=== PATIENT | male | born 1965 | race African-American/Black ===

== ENCOUNTER 2021-08-18 13:27 | Inpatient (IN) | payer OTHER ==
[~2021-08-18] VITALS: Ht 177.8 cm; Wt 90.9 kg
[2021-08-18 14:48] LABS: BASOPHILS % 0.4 % (0.0-2.0); EOSINOPHILS % 3.8 % (0.0-5.0); HEMATOCRIT. 38.7 % (42.0-52.0); HEMOGLOBIN. 13.7 g/dL (14.0-18.0); MEAN CORPUSCULAR HEMOGLOBIN 31.3 pg (28.0-32.0); MEAN CORPUSCULAR VOLUME 88.6 fL (80.0-94.0); MEAN PLATELET VOLUME 9.1 fl (7.4-10.4); NEUTROPHILS % 63.8 % (40.0-76.0); PLATELET 169 x1000/uL (130-400); RED BLOOD CELL COUNT 4.37 mill/uL (4.7-6.1); RED CELL DISTRIBUTION WIDTH 12.6 % (11.6-14.6)
[2021-08-18 14:50] LABS: INR 1.1; PROTHROMBIN TIME 11.8 sec (9.6-11.0)
[2021-08-18] MEDS ORDERED: IOHEXOL-350 100 ML BOTTLE ONE (15:02)
[2021-08-18 15:25] LABS: CLARITY URINE CLEAR (CLEAR); COLOR URINE YELLOW (YELLOW); KETONES URINE NEGATIVE (NEGATIVE); LEUKOCYTE ESTERASE URINE NEGATIVE (NEGATIVE); NITRITE URINE NEGATIVE (NEGATIVE); OCCULT BLOOD URINE TRACE (NEGATIVE); PROTEIN URINE NEGATIVE (NEGATIVE); SPECIFIC GRAVITY URINE 1.041 (1.005-1.030); UROBILINOGEN URINE 0.2 E.U./dL (0.2-1.0)
[2021-08-18 15:38] LABS: CHLORIDE 105 mEq/L (98-107)
[2021-08-18 15:43] LABS: ETHANOL BLOOD < 10 mg/dL
[2021-08-18 15:47] LABS: CREATINE KINASE 124 IU/L (39-308)
[2021-08-19 00:27] VITALS: BP 138/70
[2021-08-19] MEDS ORDERED: ZOLPIDEM TARTRATE 5MG TABLET PO PRN (01:45)
[2021-08-19 04:00] VITALS: BP 103/52
[2021-08-19 07:44] LABS: CHLORIDE 105 mEq/L (98-107)
[2021-08-19 07:46] LABS: BASOPHILS % 0.3 % (0.0-2.0); EOSINOPHILS % 6.6 % (0.0-5.0); HEMATOCRIT. 39.9 % (42.0-52.0); HEMOGLOBIN. 13.9 g/dL (14.0-18.0); LYMPHOCYTES % 31.8 % (20.0-50.0); MEAN CORPUSCULAR HEMOGLOBIN 30.6 pg (28.0-32.0); MEAN CORPUSCULAR VOLUME 87.8 fL (80.0-94.0); MEAN PLATELET VOLUME 8.8 fl (7.4-10.4); MONOCYTES % 11.1 % (2.0-8.0); NEUTROPHILS % 50.2 % (40.0-76.0); PLATELET 184 x1000/uL (130-400); RED BLOOD CELL COUNT 4.55 mill/uL (4.7-6.1); RED CELL DISTRIBUTION WIDTH 12.9 % (11.6-14.6)
[2021-08-19 08:00] VITALS: BP 112/58
[2021-08-19 08:04] LABS: LDL CHOLESTEROL 128 mg/dL (5-100)
[2021-08-19 08:05] LABS: HDL CHOLESTEROL 48 mg/dL (40-59)
[2021-08-19] MEDS ORDERED: ENOXAPARIN 40MG/0.4ML SYR SUBCUT SCH (09:00)
[2021-08-19] MEDS ORDERED: ASPIRIN 81MG TABLET PO SCH (09:00)
[2021-08-19 12:00] VITALS: BP 122/60
[2021-08-19 16:00] VITALS: BP 120/72
[2021-08-19 16:26] VITALS: BP 113/73
== END 2021-08-19 16:45 | disposition short-term general hospital (02) | DRG 93 ==
LOC: ER 13:45 → 8WST 22:23 → EDBEDREQ 22:27 → EDBEDREQTM 22:27 → ENRESERV 08-19 00:18 → CANBEDREQ 08-19 17:22
PROVIDERS: ADMIT Internal Medicine; ATTEND Internal Medicine
DX: G92.9 Unspecified toxic encephalopathy (principal); Z20.822 Contact with and (suspected) exposure to COVID-19
CPT/HCPCS: 36415; 70496; 70498; 70551; 71045; 80053; 80061; 80320; 81003; 82550; 82962; 83036; 83605; 84145; 84484; 85025; 87426; 93005; 99285; J1650; Q9967; G0480